=== PATIENT | male | born 1995 | race Caucasian/White ===

== ENCOUNTER 2016-09-11 22:22 | Emergency (ER) | payer OTHER ==
[2016-09-11 22:33] VITALS: RESP 16; TEMP 97.9
--- NOTE | 2016-09-11 22:37 | EDPHY ---
H & P Stated Complaint: x 3 wks (worse this wk) c/o N/V, NEIL, abd pain, leg aches w antacids. HPI/ROS: HPI CHIEF COMPLAINT: Nausea, vomiting, abdominal pain x3 weeks, headache, leg pain HISTORY OF PRESENT ILLNESS: This patient very pleasant 21-year-old male significant past medical history for anxiety and depression, as well as a new diagnosis of peptic ulcer disease, he presents to the emergency room by private vehicle with his mom at bedside for ongoing 3 weeks of epigastric abdominal discomfort achiness in bilateral legs, as well as what he describes a migraine headache. States his abdomen has been bothering him for 3 weeks. Endorses intermittent nausea vomiting. No blood. No hematemesis. No black tarry stools. No lower abdominal pain. No urinary symptoms. He also states today developed a migraine headache. He does have a history of migraines. He describes it as throbbing pulsating left side of his head. This is typical of his previous migraines. No fever, no neck pain. No meningeal signs. No visual disturbance. He also tells me that his legs have been aching him. Decided come the emergency room with a due to the constellation of symptoms which includes headache, nausea, abdominal pain, leg pain. Past Medical History: Anxiety, depression, peptic ulcer disease, migraine headaches Past Surgical History: No surgical history Social History: Denies daily use drugs alcohol tobacco products, mom at bedside Family History: Noncontributory ROS REVIEW OF SYSTEMS: A comprehensive 10 point review of systems is otherwise negative aside from elements mentioned in the history of present illness. Exam Constitutional appears well nontoxic, triage nursing summary reviewed, vital signs reviewed, awake/alert. Eyes normal conjunctivae and sclera, EOMI, PERRLA. HENT normal inspection, atraumatic, moist mucus membranes, no epistaxis, neck supple/ no meningismus, no raccoon eyes. Respiratory clear to auscultation bilaterally, normal breath sounds, no respiratory distress, no wheezing. Cardiovascular rate normal, regular rhythm, no murmur, no edema, distal pulses normal. Gastrointestinal nontender abdomen. soft, non-tender, no rebound, no guarding , normal bowel sounds, no distension, no pulsatile mass. Genitourinary no CVA tenderness. Musculoskeletal no midline vertebral tenderness, full range of motion, no calf swelling, no tenderness of extremities, no meningismus, good pulses, neurovascularly intact. Skin pink, warm, & dry, no rash, skin atraumatic. Neurologic awake, alert and oriented x 3, AAOx3, moves all 4 extremities equally, motor intact, sensory intact, CN II-XII intact, normal cerebellar, normal vision, normal speech. Psychiatric normal mood/affect. Heme/Lymph/Immune no lymphadenopathy. Differential Diagnosis: Includes but is not limited to in a particular order electrolyte disturbance, dehydration, migraine headache, doubt intracranial bleed or mass or meningitis, peptic ulcer disease, esophagitis, gastritis, anxiety, depression. Medical Decision Making: Plan for this patient IV establishment IV fluid bolus 1 L normal saline, GI cocktail, and migraine headache medication. Check blood work, and will re-evaluate him. Re-evaluation: 1227AM: Re-evaluation this time patient is resting comfortably no vomiting. Abdomen is soft nontender no guarding or peritoneal signs no indication for imaging. Patient's migraine headache is greatly improved with migraine cocktail. As well as GI cocktail for stomach. Vital signs have been stable blood work reviewed is unremarkable afebrile. Initial triage pulse ox sat was 88% however is resting comfortably 93% on room air here. Given that he feels much better headache resolved no nausea no vomiting no fever blood work is reassuring he is agreeable on discharge planning I did go over strict return precautions with him and his mom at bedside they understand. Comfortable with discharge. Source: Patient - Personal History Current Tetanus/Diphtheria Vaccine: No Current Tetanus Diphtheria and Acellular Pertussis (TDAP): No Tetanus Vaccine Date: 2007 - Medical/Surgical History Hx Asthma: No Hx Chronic Respiratory Disease: No Hx Diabetes: No Hx Cardiac Disease: No Hx Renal Disease: No Hx Cirrhosis: No Hx Alcoholism: No Hx HIV/AIDS: No Hx Splenectomy or Spleen Trauma: No Other PMH: DEPRESSION/ANXIETY - Social History Smoking Status: Never smoked Constitutional: Initial Vital Signs Temperature (C) 36.6 C 09/11/16 22:29 Heart Rate 68 09/11/16 22:29 Respiratory Rate 16 09/11/16 22:29 Blood Pressure 109/58 L 09/11/16 22:29 O2 Sat (%) 88 L 09/11/16 22:29 O2 Delivery Mode Room Air Allergies/Adverse Reactions: Sulfa (Sulfonamide Antibiotics) Allergy (Verified 09/11/16 22:26) Home Medications: Medication Instructions Recorded Zoloft 06/15/10 Abilify 09/11/16 Ativan 09/11/16 Lamotrigine 09/11/16 PRILOSEC 09/11/16 Ranitidine HCl 09/11/16 Zantac 09/11/16 Medical Decision Making - Data Points Laboratory Results: Laboratory Results 09/11/16 22:50 09/11/16 22:50 09/11/16 09/11/16 22:50 22:50 WBC 4.32 10^3/uL 10^3/uL (3.80-9.50) RBC 5.32 10^6/uL 10^6/uL (4.40-6.38) Hgb 16.3 g/dL g/dL (13.7-17.5) Hct 44.7 % % (40.0-51.0) MCV 84.0 fL fL (81.5-99.8) MCH 30.6 pg pg (27.9-34.1) MCHC 36.5 g/dL g/dL (32.4-36.7) RDW 12.3 % % (11.5-15.2) Plt Count 185 10^3/uL 10^3/uL (150-400) MPV 10.0 fL fL (8.7-11.7) Neut % (Auto) 63.1 % % (39.3-74.2) Lymph % (Auto) 27.1 % % (15.0-45.0) [place] % (Auto) 7.2 % % (4.5-13.0) Eos % (Auto) 1.9 % % (0.6-7.6) Baso % (Auto) 0.7 % % (0.3-1.7) Nucleat RBC Rel Count 0.0 % % (0.0-0.2) Absolute Neuts (auto) 2.73 10^3/uL 10^3/uL (1.70-6.50) Absolute Lymphs (auto) 1.17 10^3/uL 10^3/uL (1.00-3.00) Absolute Monos (auto) 0.31 10^3/uL 10^3/uL (0.30-0.80) Absolute Eos (auto) 0.08 10^3/uL 10^3/uL (0.03-0.40) Absolute Basos (auto) 0.03 10^3/uL 10^3/uL (0.02-0.10) Absolute Nucleated RBC 0.00 10^3/uL 10^3/uL (0-0.01) Immature Gran % 0.0 % % (0.0-1.1) Immature Gran # 0.00 10^3/uL 10^3/uL (0.00-0.10) Sodium 136 mEq/L mEq/L (134-144) Potassium 3.7 mEq/L mEq/L (3.5-5.2) Chloride 102 mEq/L mEq/L (97-110) Carbon Dioxide 24 mEq/l mEq/l (22-31) Anion Gap 10 mEq/L mEq/L (8-16) BUN 11 mg/dL mg/dL (7-23) Creatinine 0.9 mg/dL mg/dL (0.7-1.3) Estimated GFR > 60 Glucose 93 mg/dL mg/dL (70-100) Calcium 9.4 mg/dL mg/dL (8.5-10.4) Total Bilirubin 1.0 mg/dL mg/dL (0.1-1.4) Conjugated Bilirubin 0.4 mg/dL mg/dL (0.0-0.5) Unconjugated Bilirubin 0.6 mg/dL mg/dL (0.0-1.1) AST 26 IU/L IU/L (17-59) ALT 34 IU/L IU/L (21-72) Alkaline Phosphatase 55 IU/L IU/L (38-126) Total Protein 7.7 g/dL g/dL (6.3-8.2) Albumin 4.9 g/dL g/dL (3.5-5.0) Lipase 101.0 IU/L IU/L (23-300) Medications Given: Discontinued Medications Al Hydroxide/Mg Hydroxide (Maalox Susp) 30 ml PO ONCE ONE Stop: 09/11/16 22:46 Last Admin: 09/11/16 23:10 Dose: 30 ml Dexamethasone (Decadron Injection) 10 mg IVP EDNOW ONE Stop: 09/11/16 22:45 Last Admin: 09/11/16 23:09 Dose: 10 mg Diphenhydramine HCl (Benadryl Injection) 50 mg IVP EDNOW ONE Stop: 09/11/16 22:45 Last Admin: 09/11/16 23:09 Dose: 50 mg Fentanyl (Sublimaze) 25 mcg IVP EDNOW ONE Stop: 09/11/16 22:45 Last Admin: 09/11/16 23:09 Dose: 25 mcg Hyoscyamine Sulfate (Levsin, Hyomax-Sl) 0.25 mg PO ONCE ONE Stop: 09/11/16 22:46 Last Admin: 09/11/16 23:10 Dose: 0.25 mg Sodium Chloride (Ns) 1,000 mls @ 0 mls/hr IV ONCE ONE PRN Reason: Wide Open Stop: 09/11/16 22:45 Last Admin: 09/11/16 23:05 Dose: 1,000 mls Ketorolac Tromethamine (Toradol) 30 mg IVP EDNOW ONE Stop: 09/11/16 22:45 Last Admin: 09/11/16 23:10 Dose: 30 mg Lidocaine (Lidocaine 2% Viscous) 15 ml PO ONCE ONE Stop: 09/11/16 22:46 Last Admin: 09/11/16 23:10 Dose: 15 ml Ondansetron HCl (Zofran) 4 mg IVP EDNOW ONE Stop: 09/11/16 22:45 Last Admin: 09/11/16 23:05 Dose: 4 mg Departure - Departure Disposition: Home, Routine, Self-Care Clinical Impression: PUD (peptic ulcer disease) Migraine headache Qualifiers: Migraine type: unspecified Status migrainosus presence: without status migrainosus Intractability: not intractable Qualified Code(s): G43.909 - Migraine, unspecified, not intractable, without status migrainosus Condition: Good Instructions: Migraine Headache (ED), Peptic Ulcer (ED), Gastritis (ED) Additional Instructions: 1. Return emergency room if you have any worsening symptoms questions or concerns. 2. Please follow up with her primary care doctor. Referrals: Lidia Rodriguez MD [Primary Care Provider] - As per Instructions
[2016-09-11] MEDS ORDERED: ONDANSETRON 4 MG/2 ML VIAL ONE (22:40)
[2016-09-11] MEDS ORDERED: DEXAMETHASONE 10 MG/ML VIAL IVP ONE (22:44)
[2016-09-11] MEDS ORDERED: fentaNYL 100 MCG/2 ML INJ IVP ONE (22:44)
[2016-09-11] MEDS ORDERED: NS 1,000 ML IV ONE (22:44)
[2016-09-11] MEDS ORDERED: ONDANSETRON 4 MG/2 ML VIAL IVP ONE (22:44)
[2016-09-11] MEDS ORDERED: KETOROLAC 30 MG/1 ML SDV IVP ONE (22:44)
[2016-09-11] MEDS ORDERED: MAG HYDROX/AL HYDROX/SIMETH 30 ML UDCUP PO ONE (22:45)
[2016-09-11] MEDS ORDERED: HYOSCYAMINE SULFATE 0.125 MG TAB PO ONE (22:45)
[2016-09-11] MEDS ORDERED: LIDOCAINE 2% VISCOUS 15 ML UDCUP PO ONE (22:45)
[2016-09-11 23:02] LABS: ADD DIFF? NO; ADD MORPH? NO; ADD SCAN? NO; ATYPICAL LYMPHOCYTE FLAG 10 (0-99); FRAGMENT RBC FLAG 0 (0-99); HEMATOCRIT 44.7 % (40.0-51.0); HEMOGLOBIN 16.3 g/dL (13.7-17.5); LEFT SHIFT FLG 0 (0-99); LIPEMIA HEMOLYSIS FLAG 90 (0-99); MEAN CELL HEMOGLOBIN 30.6 pg (27.9-34.1); MEAN CELL HEMOGLOBIN CONCENTR. 36.5 g/dL (32.4-36.7); PLATELET CLUMPS FLAG 0 (0-99); PLATELET COUNT 185 10^3/uL (150-400); RED BLOOD CELL COUNT 5.32 10^6/uL (4.40-6.38); RED CELL DISTRIBUTION WIDTH 12.3 % (11.5-15.2)
[2016-09-11 23:14] LABS: ALANINE AMINOTRANSFERASE 34 IU/L (21-72); ALBUMIN 4.9 g/dL (3.5-5.0); ALKALINE PHOSPHATASE 55 IU/L (38-126); ANION GAP 10 mEq/L (8-16); ASPARTATE AMINOTRANSFERASE 26 IU/L (17-59); BILIRUBIN-CONJUGATED 0.4 mg/dL (0.0-0.5); BILIRUBIN-UNCONJUGATED 0.6 mg/dL (0.0-1.1); CALCIUM 9.4 mg/dL (8.5-10.4); CARBON DIOXIDE 24 mEq/l (22-31); CHLORIDE 102 mEq/L (97-110); CREATININE 0.9 mg/dL (0.7-1.3); GLOMERULAR FILTRATION RATE > 60; GLUCOSE 93 mg/dL (70-100); POTASSIUM 3.7 mEq/L (3.5-5.2); SODIUM 136 mEq/L (134-144); TOTAL PROTEIN 7.7 g/dL (6.3-8.2)
[2016-09-12 01:46] VITALS: BP 104/64; PULSE 72; O2SAT 95
== END 2016-09-12 01:54 | disposition home or self-care (01) ==
DX: K27.9 Peptic ulcer, site unspecified, unspecified as acute or chronic, without hemorrhage or perforation (principal); G43.909 Migraine, unspecified, not intractable, without status migrainosus
CPT/HCPCS: 96374; J1200; J1885; J2405; J3010

== ENCOUNTER 2017-11-13 12:17 | Emergency (ER) | payer OTHER ==
--- NOTE | 2017-11-13 12:58 | EDPHY ---
H & P Time Seen by Provider: 11/13/17 12:56 HPI/ROS: Chief complaint. Nausea vomiting diarrhea and exhaustion HPI. 22-year-old male with nausea vomiting and diarrhea off and on for the past 2-3 weeks. Intermittent periumbilical dull ache. Different than his ulcer. There is no burning component is not epigastric. No radiation through to his back. No recent travel or known exposures. He feels exhausted. He thinks this may be secondary to stress anxiety. Denies urinary symptoms. No fever. No previous abdominal surgery. Previous visit to the emergency department for similar symptoms ROS Constitutional. No fever. Exhaustion Eyes. no problems with vision ENT. no sore throat, no nasal drainage Cardiovascular. no chest pain Respiratory. no shortness of breath, no cough Abdominal. Periumbilical abdominal pain with intermittent nausea vomiting and diarrhea . no problems urinating MS. no calf pain/swelling, no neck/back pain, no joint pain Skin. no rash Lymph. no swollen glands Neuro. no headache, no dizziness, no difficulty walking or with speech Past Medical/Surgical History: Anxiety/depression, peptic ulcer disease, migraines, enlarged spleen at age 16 that resolved Social History: Single, nonsmoker, no alcohol Smoking Status: Never smoked Physical Exam: General Appearance: Alert pleasant well-developed male vital signs significant for blood pressure 94/61 Eyes: Pupils equal and round no pallor or injection. ENT, Mouth: Mucous membranes are moist. Respiratory: There are no retractions, lungs are clear to auscultation. Cardiovascular: Regular rate and rhythm. Gastrointestinal: Abdomen is soft and nontender. No masses. Normal bowel sounds Neurological: Awake and alert, sensory and motor exams grossly normal. Skin: Warm and dry, no rashes. Musculoskeletal: Neck is supple nontender. Extremities symmetrical, full range of motion. Psychiatric: Patient is oriented X 3, there is no agitation. Constitutional: Initial Vital Signs Temperature (C) 36.7 C 11/13/17 12:26 Heart Rate 67 11/13/17 12:26 Respiratory Rate 18 11/13/17 12:26 Blood Pressure 94/61 L 11/13/17 12:26 O2 Sat (%) 96 11/13/17 12:26 O2 Delivery Mode Room Air Allergies/Adverse Reactions: Sulfa (Sulfonamide Antibiotics) Allergy (Verified 11/13/17 12:24) Home Medications: Medication Instructions Recorded Zoloft 06/15/10 Abilify 09/11/16 Ativan 09/11/16 Lamotrigine 09/11/16 Ondansetron Odt [Zofran Odt] 4 mg PO Q4PRN PRN #10 tab 11/13/17 Medical Decision Making Procedures: IV normal saline with initial target of 2 L. Patient is not currently nauseated so no Zofran or anti medics are given ED Course/Re-evaluation: Patient has had 2 L of saline And Has need to urinate. Taking oral ice chips and water without nausea or vomiting The patient, his mom, and I discussed laboratory evaluation, treatment plan including criteria for return importance of follow-up and further evaluation. They expressed understanding and agreement Differential Diagnosis: Nausea vomiting diarrhea that is intermittent. Seems to be stress related. No evidence for infectious diarrhea, electrolyte abnormalities or significant dehydration - Data Points Laboratory Results: Laboratory Results 11/13/17 12:50 11/13/17 12:50 11/13/17 11/13/17 12:50 12:50 WBC 3.15 10^3/uL L 10^3/uL (3.80-9.50) RBC 5.33 10^6/uL 10^6/uL (4.40-6.38) Hgb 16.6 g/dL g/dL (13.7-17.5) Hct 46.6 % % (40.0-51.0) MCV 87.4 fL fL (81.5-99.8) MCH 31.1 pg pg (27.9-34.1) MCHC 35.6 g/dL g/dL (32.4-36.7) RDW 12.8 % % (11.5-15.2) Plt Count 193 10^3/uL 10^3/uL (150-400) MPV 11.5 fL fL (8.7-11.7) Neut % (Auto) 54.0 % % (39.3-74.2) Lymph % (Auto) 32.4 % % (15.0-45.0) [place] % (Auto) 6.0 % % (4.5-13.0) Eos % (Auto) 7.0 % % (0.6-7.6) Baso % (Auto) 0.6 % % (0.3-1.7) Nucleat RBC Rel Count 0.0 % % (0.0-0.2) Absolute Neuts (auto) 1.70 10^3/uL 10^3/uL (1.70-6.50) Absolute Lymphs (auto) 1.02 10^3/uL 10^3/uL (1.00-3.00) Absolute Monos (auto) 0.19 10^3/uL L 10^3/uL (0.30-0.80) Absolute Eos (auto) 0.22 10^3/uL 10^3/uL (0.03-0.40) Absolute Basos (auto) 0.02 10^3/uL 10^3/uL (0.02-0.10) Absolute Nucleated RBC 0.00 10^3/uL 10^3/uL (0-0.01) Immature Gran % 0.0 % % (0.0-1.1) Immature Gran # 0.00 10^3/uL 10^3/uL (0.00-0.10) Sodium 140 mEq/L mEq/L (135-145) Potassium 4.2 mEq/L mEq/L (3.3-5.0) Chloride 105 mEq/L mEq/L (97-110) Carbon Dioxide 25 mEq/l mEq/l (22-31) Anion Gap 10 mEq/L mEq/L (8-16) BUN 13 mg/dL mg/dL (7-23) Creatinine 0.9 mg/dL mg/dL (0.7-1.3) Estimated GFR > 60 Glucose 87 mg/dL mg/dL (70-100) Calcium 9.5 mg/dL mg/dL (8.5-10.4) Total Bilirubin 1.0 mg/dL mg/dL (0.1-1.4) Conjugated Bilirubin 0.5 mg/dL mg/dL (0.0-0.5) Unconjugated Bilirubin 0.5 mg/dL mg/dL (0.0-1.1) AST 35 IU/L IU/L (17-59) ALT 52 IU/L IU/L (21-72) Alkaline Phosphatase 53 IU/L IU/L (38-126) Total Protein 7.5 g/dL g/dL (6.3-8.2) Albumin 4.9 g/dL g/dL (3.5-5.0) Lipase 72 IU/L IU/L (23-300) Medications Given: Discontinued Medications Sodium Chloride (Ns) 1,000 mls @ 0 mls/hr IV EDNOW ONE; Wide Open PRN Reason: Protocol Stop: 11/13/17 13:37 Last Admin: 11/13/17 13:48 Dose: 1,000 mls Sodium Chloride (Ns) 1,000 mls @ 0 mls/hr IV EDNOW ONE; Wide Open PRN Reason: Protocol Stop: 11/13/17 13:37 Last Admin: 11/13/17 13:48 Dose: 1,000 mls Departure - Departure Disposition: Home, Routine, Self-Care Clinical Impression: Vomiting Qualifiers: Vomiting type: unspecified Vomiting Intractability: non-intractable Nausea presence: with nausea Qualified Code(s): R11.2 - Nausea with vomiting, unspecified Condition: Good Instructions: Acute Nausea and Vomiting (ED) Additional Instructions: When nauseated frequent, small sips fluids. Zofran as needed for nausea and vomiting. Gradual diet advancement . Return for worsening symptoms. Re-evaluation by your regular physician next week. Return sooner over the weekend for worsening symptoms Referrals: Bernie Wharton MD [Primary Care Provider] - 5-7 days, call for appt. Prescriptions: Ondansetron Odt [Zofran Odt] 4 mg PO Q4PRN PRN #10 tab PRN Reason: Nausea/Vomiting, Use 1st
[2017-11-13] MEDS ORDERED: NS 1,000 ML IV ONE ×2 (13:36)
[2017-11-13 13:45] LABS: PLATELET COUNT 193 10^3/uL (150-400)
[2017-11-13 15:30] VITALS: BP 105/62
== END 2017-11-13 15:27 | disposition home or self-care (01) ==
DX: R11.2 Nausea with vomiting, unspecified (principal); E86.9 Volume depletion, unspecified